=== PATIENT | female | born 1970 | race African-American/Black ===

== ENCOUNTER 2017-02-03 01:26 | Emergency (ER) | payer MEDICAID ==
[~2017-02-03] VITALS: Ht 165.1 cm; Wt 100.4 kg
[~2017-02-03 01:26] MED LIST: AMLO10TA80 PO; ASPI-1160 PO; Furosemide PO; HYDR-4135 PO; Lisinopril PO
[2017-02-03] MEDS ORDERED: MORPHINE SULFATE 4 MG/ML CPJ (NOT FOR IM USE) IV STA (03:48)
[2017-02-03] MEDS ORDERED: ONDANSETRON HCL 4MG/2ML VIAL IV STA (03:48)
[2017-02-03] MEDS ORDERED: HYDRALAZINE 20MG/ML VIAL IV ONE (04:00)
[2017-02-03 04:48] VITALS: BP 201/106
== END 2017-02-03 06:06 | disposition home or self-care (01) ==
LOC: ER 01:26
DX: M25.561 Pain in right knee (principal); I10 Essential (primary) hypertension; Z79.82 Long term (current) use of aspirin
CPT/HCPCS: 73562; 96374; 96375; 99284; J0360; J2270; J2405; L1830; Z7610

== ENCOUNTER 2017-05-05 20:27 | Emergency (ER) | payer MEDICAID ==
[~2017-05-05] VITALS: Ht 165.1 cm; Wt 100.9 kg
[2017-05-06 05:25] VITALS: BP 227/141
== END 2017-05-06 05:54 | disposition left against medical advice (07) ==
LOC: ER 21:15
DX: R10.9 Unspecified abdominal pain (principal); Z53.21 Procedure and treatment not carried out due to patient leaving prior to being seen by health care provider

== ENCOUNTER 2018-06-04 01:25 | Emergency (ER) | payer MEDICAID ==
[~2018-06-04] VITALS: Ht 165.1 cm; Wt 82.0 kg
[2018-06-04] MEDS ORDERED: CLONIDINE 0.2MG TABLET PO ONE (03:15)
[2018-06-04 03:26] LABS: BASOPHILS % 1.2 % (0.0-2.0); EOSINOPHILS % 2.5 % (0.0-5.0); HEMOGLOBIN. 13.6 g/dL (12.0-16.0); LYMPHOCYTES % 57.6 % (20.0-50.0); MEAN CORPUSCULAR HEMOGLOBIN 30.2 pg (28.0-32.0); MEAN CORPUSCULAR VOLUME 88.8 fL (81.0-99.0); MEAN PLATELET VOLUME 9.1 fl (7.4-10.4); MONOCYTES % 7.9 % (2.0-8.0); NEUTROPHILS % 30.8 % (40.0-76.0); PLATELET 193 x1000/uL (130-400); RED BLOOD CELL COUNT 4.51 mill/uL (4.2-5.4); RED CELL DISTRIBUTION WIDTH 12.7 % (11.6-14.6)
[2018-06-04 03:29] LABS: CHLORIDE 105 mEq/L (98-107)
[2018-06-04 03:31] LABS: HCG SCREEN NEGATIVE
[2018-06-04 03:32] LABS: PARTIAL THROMBOPLASTIN TIME 27.3 sec (23.4-31.0); PROTHROMBIN TIME 10.4 sec (9.1-11.1)
[2018-06-04] MEDS ORDERED: IBUPROFEN 600MG TABLET PO ONE (03:45)
[2018-06-04] MEDS ORDERED: POTASSIUM CHLORIDE 20MEQ TABLET SR PO ONE (04:00)
[2018-06-04] MEDS ORDERED: ASPIRIN 81MG TABLET PO ONE (05:00)
[2018-06-04] MEDS ORDERED: HYDRALAZINE 20MG/ML VIAL IV ONE (05:00)
[2018-06-04 05:29] VITALS: BP 141/82
== END 2018-06-04 05:35 | disposition home or self-care (01) ==
LOC: ER 01:25
DX: I10 Essential (primary) hypertension (principal); R00.1 Bradycardia, unspecified; M25.561 Pain in right knee; Z90.49 Acquired absence of other specified parts of digestive tract; Z90.710 Acquired absence of both cervix and uterus; Z79.82 Long term (current) use of aspirin
CPT/HCPCS: 36415; 71045; 73562; 81025; 83880; 84484; 84703; 93005; 93970; 99285; J7030; J7040

== ENCOUNTER 2021-06-08 17:31 | Inpatient (IN) | payer MEDICAID ==
[~2021-06-08] VITALS: Ht 165.1 cm; Wt 102.8 kg
[2021-06-08] MEDS ORDERED: HYDROCODONE/ACETAMINOPHEN 5/325MG TABLET PO ONE (18:15)
[2021-06-08] MEDS ORDERED: ACET-2708 MT (22:47)
[2021-06-09] MEDS ORDERED: HYDRALAZINE 20MG/ML VIAL IV ONE (04:30)
[2021-06-09 06:59] VITALS: BP 174/81
[2021-06-09 08:00] VITALS: BP 156/66
[2021-06-09] MEDS ORDERED: ACETAMINOPHEN 325MG TABLET PO PRN (08:30)
[2021-06-09 09:00] VITALS: BP 156/66
[2021-06-09] MEDS ORDERED: NALOXONE HCL 0.4MG/ML VIAL IV PRN (09:00)
[2021-06-09] MEDS ORDERED: ENOXAPARIN 40MG/0.4ML SYR SUBCUT SCH (09:00)
[2021-06-09] MEDS: AMLODIPINE 10MG TABLET PO SCH (09:32)
[2021-06-09] MEDS: LISINOPRIL 10MG TABLET PO SCH (09:32)
[2021-06-09] MEDS: ASPIRIN 81MG TABLET PO SCH (09:33)
[2021-06-09 10:04] LABS: BASOPHILS % 0.8 % (0.0-2.0); EOSINOPHILS % 2.7 % (0.0-5.0); HEMATOCRIT. 38.5 % (36.0-48.0); HEMOGLOBIN. 13.1 g/dL (12.0-16.0); LYMPHOCYTES % 32.8 % (20.0-50.0); MEAN CORPUSCULAR HEMOGLOBIN 29.8 pg (28.0-32.0); MEAN CORPUSCULAR VOLUME 87.9 fL (81.0-99.0); MEAN PLATELET VOLUME 9.4 fl (7.4-10.4); MONOCYTES % 7.9 % (2.0-8.0); NEUTROPHILS % 55.8 % (40.0-76.0); PLATELET 213 x1000/uL (130-400); RED BLOOD CELL COUNT 4.38 mill/uL (4.2-5.4); RED CELL DISTRIBUTION WIDTH 13.8 % (11.6-14.6)
[2021-06-09 10:22] LABS: CHLORIDE 111 mEq/L (98-107)
[2021-06-09 10:29] LABS: LDL CHOLESTEROL 98 mg/dL (5-100)
[2021-06-09 10:31] LABS: HDL CHOLESTEROL 45 mg/dL (40-59)
[2021-06-09 12:00] VITALS: BP 156/66
[2021-06-09] MEDS: ENOXAPARIN 30MG/0.3ML SYR SUBCUT SCH ×2 (12:19→21:11)
[2021-06-09] MEDS ORDERED: POTASSIUM CHLORIDE 20MEQ TABLET SR PO NR (14:45)
[2021-06-09] MEDS ORDERED: ONDANSETRON HCL 4MG/2ML INJ IV PRN (14:45)
[2021-06-09 15:56] VITALS: BP 200/117
[2021-06-09] MEDS: CLONIDINE 0.1MG TABLET PO PRN (15:58)
[2021-06-09] MEDS: HYDRALAZINE HCL 50MG TABLET PO SCH ×2 (15:58→21:10)
[2021-06-09 20:00] VITALS: BP 140/75
[2021-06-09 22:16] LABS: *AMPHETAMINES SCREEN URINE NEGATIVE (NEGATIVE); *BARBITURATES SCREEN URINE NEGATIVE (NEGATIVE); *BENZODIAZEPINES SCREEN URINE NEGATIVE (NEGATIVE)
[2021-06-09 22:17] LABS: *COCAINE SCREEN URINE NEGATIVE (NEGATIVE); CANNABINOID URINE SCREEN NEGATIVE (NEGATIVE); METHADONE URINE SCREEN NEGATIVE (NEGATIVE); OPIATES URINE SCREEN PRESUMTIVE POSITIVE (NEGATIVE); PHENCYCLIDINE URINE SCREEN NEGATIVE (NEGATIVE)
[2021-06-10] VITALS: BP 140/79
[2021-06-10] MEDS: HYDRALAZINE HCL 50MG TABLET PO SCH ×3 (05:56→21:51)
[2021-06-10 05:58] VITALS: BP 142/67
[2021-06-10 08:00] VITALS: BP 184/108
[2021-06-10] MEDS: ENOXAPARIN 30MG/0.3ML SYR SUBCUT SCH ×2 (08:34→21:51)
[2021-06-10] MEDS: LISINOPRIL 10MG TABLET PO SCH (08:35)
[2021-06-10] MEDS: ASPIRIN 81MG TABLET PO SCH (08:35)
[2021-06-10] MEDS: AMLODIPINE 10MG TABLET PO SCH (08:35)
[2021-06-10] MEDS: CLONIDINE 0.1MG TABLET PO PRN (08:35)
[2021-06-10 12:07] VITALS: BP 153/93
[2021-06-10 15:45] VITALS: BP 135/82
[2021-06-10 16:36] LABS: BASOPHILS % 0.8 % (0.0-2.0); HEMATOCRIT. 36.7 % (36.0-48.0); HEMOGLOBIN. 12.5 g/dL (12.0-16.0); LYMPHOCYTES % 48.5 % (20.0-50.0); MEAN CORPUSCULAR VOLUME 88.2 fL (81.0-99.0); MEAN PLATELET VOLUME 9.6 fl (7.4-10.4); MONOCYTES % 8.4 % (2.0-8.0); NEUTROPHILS % 39.3 % (40.0-76.0); PLATELET 214 x1000/uL (130-400); RED BLOOD CELL COUNT 4.16 mill/uL (4.2-5.4); RED CELL DISTRIBUTION WIDTH 14.2 % (11.6-14.6)
[2021-06-10 16:57] LABS: CHLORIDE 110 mEq/L (98-107)
[2021-06-10 17:07] LABS: LDL CHOLESTEROL 102 mg/dL (5-100)
[2021-06-10 17:08] LABS: HDL CHOLESTEROL 42 mg/dL (40-59)
[2021-06-10 17:09] LABS: T4 FREE 1.02 ng/dL (0.76-1.46)
[2021-06-10 17:21] LABS: FOLIC ACID (FOLATE) SERUM 15.6 ng/mL (>5.38)
[2021-06-10 20:00] VITALS: BP 119/76
[2021-06-11] VITALS: BP 127/74
[2021-06-11 04:00] VITALS: BP 149/74
[2021-06-11] MEDS: HYDRALAZINE HCL 50MG TABLET PO SCH ×3 (06:39→22:18)
[2021-06-11 08:00] VITALS: BP 170/80
[2021-06-11] MEDS: ASPIRIN 81MG TABLET PO SCH (08:59)
[2021-06-11] MEDS: CLOPIDOGREL 75MG TABLET PO SCH (09:00)
[2021-06-11] MEDS: LISINOPRIL 40MG TABLET PO SCH (09:00)
[2021-06-11] MEDS: AMLODIPINE 10MG TABLET PO SCH (09:00)
[2021-06-11] MEDS: ENOXAPARIN 30MG/0.3ML SYR SUBCUT SCH ×2 (09:01→22:18)
[2021-06-11 12:00] VITALS: BP 177/81
[2021-06-11] MEDS: CLONIDINE 0.1MG TABLET PO PRN (13:07)
[2021-06-11 15:56] VITALS: BP 135/60
[2021-06-11 20:00] VITALS: BP 142/73
[2021-06-11] MEDS: HYDROCODONE/ACETAMINOPHEN 5/325MG TABLET PO PRN (22:19)
[2021-06-12] VITALS: BP 119/74
[2021-06-12 04:00] VITALS: BP 147/69
[2021-06-12] MEDS: HYDRALAZINE HCL 50MG TABLET PO SCH ×2 (05:25→13:08)
[2021-06-12 08:00] VITALS: BP 172/89
[2021-06-12] MEDS: LISINOPRIL 40MG TABLET PO SCH (09:08)
[2021-06-12] MEDS: ASPIRIN 81MG TABLET PO SCH (09:08)
[2021-06-12] MEDS: AMLODIPINE 10MG TABLET PO SCH (09:08)
[2021-06-12] MEDS: ENOXAPARIN 30MG/0.3ML SYR SUBCUT SCH (09:08)
[2021-06-12] MEDS: CLOPIDOGREL 75MG TABLET PO SCH (09:08)
[2021-06-12] MEDS: HYDROCODONE/ACETAMINOPHEN 5/325MG TABLET PO PRN (09:46)
[2021-06-12 12:00] VITALS: BP 151/74
[2021-06-12 12:14] VITALS: BP 115/70
[2021-06-12 16:00] VITALS: BP 160/75
[2021-06-12] MEDS: CLONIDINE 0.1MG TABLET PO PRN (17:01)
[2021-06-14 13:06] LABS: ANTI-THROMBIN ACTIVITY 92 % (75-135); PROTEIN C FUNCTIONAL 156 % (73-180)
[2021-06-14 19:06] LABS: ANTI-CARDIOLIPIN AB IGA 14 APL U/mL (0-11); ANTI-CARDIOLIPIN AB IGG < 9 GPL U/mL (0-14)
[2021-06-15 09:11] LABS: ANTI-CARDIOLIPIN AB IGM < 9 MPL U/mL (0-12)
== END 2021-06-12 17:42 | DRG 45 ==
LOC: ER 17:31 → 6WST 06-09 04:43 → ENRESERV 06-09 04:56 → 6WST 06-09 06:39
PROVIDERS: ADMIT Internal Medicine; ATTEND Internal Medicine
DX: I63.9 Cerebral infarction, unspecified (principal); E87.8 Other disorders of electrolyte and fluid balance, not elsewhere classified; I69.351 Hemiplegia and hemiparesis following cerebral infarction affecting right dominant side; I16.0 Hypertensive urgency; E66.9 Obesity, unspecified; I10 Essential (primary) hypertension; E87.6 Hypokalemia; R41.4 Neurologic neglect syndrome; Z20.822 Contact with and (suspected) exposure to COVID-19; W18.30XA Fall on same level, unspecified, initial encounter; R73.9 Hyperglycemia, unspecified; I69.320 Aphasia following cerebral infarction; Z79.899 Other long term (current) drug therapy; Z68.37 Body mass index [BMI] 37.0-37.9, adult; Z90.710 Acquired absence of both cervix and uterus; Y93.89 Activity, other specified; Y92.89 Other specified places as the place of occurrence of the external cause; Y99.8 Other external cause status; Z90.49 Acquired absence of other specified parts of digestive tract; Z71.3 Dietary counseling and surveillance
CPT/HCPCS: 36415; 70544; 70551; 72170; 80048; 80053; 80061; 80305; 81400; 81403; 81407; 81479; 82607; 82746; 83036; 84439; 84443; 84481; 85025; 85300; 85303; 85306; 86147; 87426; 92610; 93306; 93880; 97162; 97166; 97530; 99285; J0360; J1650

== ENCOUNTER 2021-06-12 17:55 | Emergency (ER) | payer MEDICAID ==
[~2021-06-12] VITALS: Ht 167.6 cm; Wt 100.0 kg
[~2021-06-12 17:55] MED LIST changes: +ACET-2708 MT
[2021-06-12] MEDS ORDERED: HYDRALAZINE HCL 50MG TABLET PO ONE (20:15)
[2021-06-12] MEDS ORDERED: CLONIDINE 0.1MG TABLET PO ONE (20:15)
[2021-06-12] MEDS ORDERED: AMLODIPINE 5MG TABLET PO ONE (20:30)
[2021-06-13 04:16] VITALS: BP 152/90
== END 2021-06-13 04:18 ==
LOC: ER 17:55
DX: I10 Essential (primary) hypertension (principal); I69.354 Hemiplegia and hemiparesis following cerebral infarction affecting left non-dominant side; E11.9 Type 2 diabetes mellitus without complications; Z79.82 Long term (current) use of aspirin; Z87.891 Personal history of nicotine dependence
CPT/HCPCS: 99285

== ENCOUNTER 2022-02-17 03:30 | Emergency (ER) | payer MEDICAID, OTHER ==
[~2022-02-17] VITALS: Ht 172.7 cm; Wt 95.0 kg
[2022-02-17] MEDS ORDERED: KETOROLAC 30MG/ML VIAL IV STA (08:24)
[2022-02-17] MEDS ORDERED: SODIUM CHLORIDE 0.9% 1,000 ML IV ONE (08:30)
[2022-02-17] MEDS ORDERED: ONDANSETRON HCL 4MG/2ML INJ IV ONE (08:30)
[2022-02-17 09:34] LABS: BASOPHILS % 0.5 % (0.0-2.0); EOSINOPHILS % 0.3 % (0.0-5.0); HEMOGLOBIN. 13.7 g/dL (12.0-16.0); LYMPHOCYTES % 22.6 % (20.0-50.0); MEAN CORPUSCULAR HEMOGLOBIN 30.6 pg (28.0-32.0); MEAN CORPUSCULAR VOLUME 89.6 fL (81.0-99.0); MEAN PLATELET VOLUME 9.6 fl (7.4-10.4); MONOCYTES % 4.6 % (2.0-8.0); PLATELET 259 x1000/uL (130-400); RED BLOOD CELL COUNT 4.47 mill/uL (4.2-5.4); RED CELL DISTRIBUTION WIDTH 13.8 % (11.6-14.6)
[2022-02-17 09:37] LABS: CLARITY URINE TURBID (CLEAR); COLOR URINE YELLOW (YELLOW); KETONES URINE NEGATIVE (NEGATIVE); LEUKOCYTE ESTERASE URINE 2+ (NEGATIVE); NITRITE URINE NEGATIVE (NEGATIVE); OCCULT BLOOD URINE NEGATIVE (NEGATIVE); PROTEIN URINE NEGATIVE (NEGATIVE); SPECIFIC GRAVITY URINE 1.019 (1.005-1.030)
[2022-02-17 09:42] LABS: CHLORIDE 104 mEq/L (98-107)
[2022-02-17 09:44] LABS: HCG SCREEN NEGATIVE
[2022-02-17] MEDS ORDERED: CEFTRIAXONE 1 G PREMIX 50 ML IV ONE (11:00)
[2022-02-17] MEDS ORDERED: CEPH500T MT (11:04)
[2022-02-17] MEDS ORDERED: IBUP-2028 MT (11:04)
[2022-02-17] MEDS ORDERED: CEFTRIAXONE 1 G PREMIX 50 ML IV NR (11:15)
[2022-02-17 11:48] VITALS: BP 136/75
== END 2022-02-17 11:50 | disposition home or self-care (01) ==
LOC: ER 03:30
DX: R10.33 Periumbilical pain (principal); N39.0 Urinary tract infection, site not specified; I10 Essential (primary) hypertension; Z86.73 Personal history of transient ischemic attack (TIA), and cerebral infarction without residual deficits; Z79.82 Long term (current) use of aspirin
CPT/HCPCS: 36415; 71045; 74176; 80053; 81003; 83690; 84703; 85025; 87077; 87086; 87186; 93005; 96361; 96365; 96375; 99285; J1885; J2405; J7030

== ENCOUNTER 2022-05-13 15:19 | Inpatient (IN) | payer MEDICAID ==
[~2022-05-13] VITALS: Ht 167.6 cm; Wt 111.6 kg
[~2022-05-13 15:19] MED LIST changes: +CEPH500T MT; +IBUP-2028 MT
[2022-05-13 16:10] LABS: BASOPHILS % 0.9 % (0.0-2.0); EOSINOPHILS % 1.5 % (0.0-5.0); HEMATOCRIT. 40.9 % (36.0-48.0); MEAN CORPUSCULAR HEMOGLOBIN 30.4 pg (28.0-32.0); MEAN CORPUSCULAR VOLUME 88.5 fL (81.0-99.0); MEAN PLATELET VOLUME 9.9 fl (7.4-10.4); MONOCYTES % 5.7 % (2.0-8.0); NEUTROPHILS % 68.9 % (40.0-76.0); PLATELET 234 x1000/uL (130-400); RED BLOOD CELL COUNT 4.62 mill/uL (4.2-5.4); RED CELL DISTRIBUTION WIDTH 14.1 % (11.6-14.6)
[2022-05-13 16:20] LABS: CHLORIDE 105 mEq/L (98-107)
[2022-05-13 17:03] LABS: PROTHROMBIN TIME 10.3 sec (9.6-11.0)
[2022-05-13] MEDS ORDERED: LABETALOL 5MG/ML SYR 20 MG/4 ML SYRINGE IV ONE (18:45)
[2022-05-13 19:09] LABS: CLARITY URINE CLEAR (CLEAR); COLOR URINE YELLOW (YELLOW); LEUKOCYTE ESTERASE URINE NEGATIVE (NEGATIVE); NITRITE URINE NEGATIVE (NEGATIVE); UROBILINOGEN URINE 0.2 E.U./dL (0.2-1.0)
[2022-05-13 19:10] LABS: KETONES URINE NEGATIVE (NEGATIVE); OCCULT BLOOD URINE NEGATIVE (NEGATIVE); PH URINE 6.5 (4.5-8.0); PROTEIN URINE NEGATIVE (NEGATIVE)
[2022-05-13] MEDS ORDERED: HYDRALAZINE 20MG/ML VIAL IV ONE (22:30)
[2022-05-13] MEDS ORDERED: ACETAMINOPHEN 325MG TABLET PO ONE (23:30)
[2022-05-13] MEDS ORDERED: KETOROLAC 30MG/ML VIAL IV ONE (23:30)
[2022-05-14] MEDS ORDERED: CLONIDINE 0.1MG TABLET PO PRN (01:30)
[2022-05-14 01:38] VITALS: BP 230/123
[2022-05-14] MEDS ORDERED: HYDRALAZINE HCL 50MG TABLET PO SCH (06:00)
[2022-05-14] MEDS: AMLODIPINE 10MG TABLET PO NR ×2 (06:31→09:12)
[2022-05-14 07:39] LABS: BASOPHILS % 0.4 % (0.0-2.0); EOSINOPHILS % 0.9 % (0.0-5.0); HEMATOCRIT. 36.8 % (36.0-48.0); HEMOGLOBIN. 12.3 g/dL (12.0-16.0); LYMPHOCYTES % 36.4 % (20.0-50.0); MEAN CORPUSCULAR HEMOGLOBIN 29.7 pg (28.0-32.0); MEAN CORPUSCULAR VOLUME 89.1 fL (81.0-99.0); MEAN PLATELET VOLUME 9.4 fl (7.4-10.4); MONOCYTES % 7.2 % (2.0-8.0); NEUTROPHILS % 55.1 % (40.0-76.0); PLATELET 215 x1000/uL (130-400); RED BLOOD CELL COUNT 4.13 mill/uL (4.2-5.4); RED CELL DISTRIBUTION WIDTH 13.7 % (11.6-14.6)
[2022-05-14 08:00] VITALS: BP 150/89
[2022-05-14 08:42] LABS: CHLORIDE 106 mEq/L (98-107)
[2022-05-14 08:50] LABS: HDL CHOLESTEROL 47 mg/dL (40-59); LDL CHOLESTEROL 92 mg/dL (5-100)
[2022-05-14] MEDS ORDERED: LISINOPRIL 20MG TABLET PO SCH (09:00)
[2022-05-14] MEDS: METOPROLOL SUCCINATE 50MG ER TABLET PO SCH (09:12)
[2022-05-14 12:00] VITALS: BP_SYST 138; BP_SYST 169; BP_SYST 199; BP_DIAS 130; BP_DIAS 81; BP_DIAS 88
[2022-05-14] MEDS ORDERED: POTASSIUM CHLORIDE 20MEQ TABLET SR PO NR (12:30)
[2022-05-14] MEDS: HYDRALAZINE HCL 100MG TABLET PO SCH ×2 (14:01→21:39)
[2022-05-14 16:00] VITALS: BP 167/85
[2022-05-14 20:00] VITALS: BP_SYST 144; BP_SYST 147; BP_SYST 173; BP_DIAS 71; BP_DIAS 84; BP_DIAS 87
[2022-05-14] MEDS: LISINOPRIL 20MG TABLET PO SCH (21:40)
[2022-05-15] VITALS: BP 158/96
[2022-05-15 04:00] VITALS: BP 161/78
[2022-05-15] MEDS: HYDRALAZINE HCL 100MG TABLET PO SCH ×3 (05:46→20:55)
[2022-05-15 08:00] VITALS: BP 176/71
[2022-05-15] MEDS ORDERED: NIFEDIPINE XL 60MG TAB PO SCH ×2 (08:00→11:00)
[2022-05-15] MEDS: ASPIRIN 81MG TABLET PO SCH (09:26)
[2022-05-15] MEDS: METOPROLOL SUCCINATE 50MG ER TABLET PO SCH (09:26)
[2022-05-15] MEDS: LISINOPRIL 20MG TABLET PO SCH ×2 (09:27→20:55)
[2022-05-15 12:00] VITALS: BP 130/90
[2022-05-15 16:00] VITALS: BP 133/79
[2022-05-15 20:00] VITALS: BP 166/79
[2022-05-15] MEDS: NIFEDIPINE XL 60MG TAB PO SCH (21:00)
[2022-05-16] VITALS (7 sets, daily range): BP systolic 122–151; BP diastolic 65–83
[2022-05-16] MEDS: HYDRALAZINE HCL 100MG TABLET PO SCH ×3 (06:38→21:38)
[2022-05-16] MEDS: NIFEDIPINE XL 60MG TAB PO SCH ×2 (08:58→21:37)
[2022-05-16] MEDS: METOPROLOL SUCCINATE 50MG ER TABLET PO SCH (08:59)
[2022-05-16] MEDS: LISINOPRIL 20MG TABLET PO SCH ×2 (08:59→21:38)
[2022-05-16] MEDS: ASPIRIN 81MG TABLET PO SCH (09:00)
[2022-05-16] MEDS ORDERED: ZOLPIDEM TARTRATE 5MG TABLET PO PRN (16:45)
[2022-05-17] VITALS (7 sets, daily range): BP systolic 117–161; BP diastolic 52–86
[2022-05-17] MEDS: HYDRALAZINE HCL 100MG TABLET PO SCH ×3 (07:09→22:13)
[2022-05-17] MEDS: ASPIRIN 81MG TABLET PO SCH (09:15)
[2022-05-17] MEDS: NIFEDIPINE XL 60MG TAB PO SCH ×2 (09:16→20:29)
[2022-05-17] MEDS: LISINOPRIL 20MG TABLET PO SCH ×2 (09:16→20:29)
[2022-05-17] MEDS: METOPROLOL SUCCINATE 50MG ER TABLET PO SCH (09:16)
== END 2022-05-17 22:45 | DRG 48 ==
LOC: ER 15:19 → MICUSO 22:49 → 7EST 05-14 01:11
PROVIDERS: ADMIT Internal Medicine; ATTEND Internal Medicine
DX: G90.8 Other disorders of autonomic nervous system (principal); I69.351 Hemiplegia and hemiparesis following cerebral infarction affecting right dominant side; E66.9 Obesity, unspecified; I16.0 Hypertensive urgency; I10 Essential (primary) hypertension; Z68.39 Body mass index [BMI] 39.0-39.9, adult
CPT/HCPCS: 36415; 71045; 80048; 80053; 80061; 81003; 83036; 83880; 84484; 85025; 93005; 93306; 97161; 97530; 99285; J0360; J1885; J3490